=== PATIENT | male | born 1980 | race Caucasian/White ===

== ENCOUNTER 2024-08-20 09:29 | Outpatient (CLI) | payer OTHER, SELFPAY ==
--- NOTE | 2024-08-20 09:43 | MRI_ITS ---
STUDY: MRI ARTHROGRAM OF THE LEFT SHOULDER REASON FOR EXAM: Male, 44 years old. Left shoulder strain. TECHNIQUE: 10 cc of dilute Clariscan contrast was injected into the left glenohumeral joint. MRI was obtained in all 3 orthogonal planes. In addition, a fat-suppressed T1-weighted sequence was performed with the patient''s arm in the abduction external rotation (ABER) position. COMPARISON: Left shoulder radiographs during the arthrogram injection dated 08/20/2024. FINDINGS: Normal supraspinatus tendon. Normal infraspinatus tendon. Normal subscapularis tendon. Normal teres minor tendon. Normal supraspinatus muscle. Normal infraspinatus muscle. Normal subscapularis muscle. Normal teres minor muscle. Normal glenohumeral articulation. There is mild enthesopathic subcortical cyst formation of the greater tuberosity of the humeral head. Normal biceps labral complex. Normal intracapsular long biceps tendon. Normal rotator interval. There is a suspected tear of the posterior glenoid labrum (axial T1 series 3 images 11-12). There is mild acromioclavicular arthrosis. There is a Type II morphology (curved), with a neutral orientation. There is no subacromial-subdeltoid bursal fluid. Normal visualized coracohumeral and coracoacromial ligaments. Normal quadrilateral space. Normal axillary space. Normal deltoid muscle. Normal trapezius muscle. MRI/Upper Ext Jt W/Contrast IMPRESSION: Suspected tear of the posterior glenoid labrum. Mild acromioclavicular arthrosis. No full-thickness rotator cuff tear. Electronically Signed: Abisai Reeder MD at 13:04 EST ,
--- NOTE | 2024-08-20 10:00 | RAD_ITS ---
STUDY: X-RAY - LEFT SHOULDER REASON FOR EXAM: Male, 44 years old. Shoulder arthrogram afterfilms. TECHNIQUE: 3 views of the left shoulder following intra-articular glenohumeral arthrogram injection. COMPARISON: None. FINDINGS: Normal glenohumeral articulation. There is minimal acromioclavicular arthrosis. Normal acromion. Normal humeral head and visualized proximal humerus. The soft tissue structures are unremarkable. There is no demonstrated fracture. Normal visualized pulmonary apex. RAD/Shoulder min 2 Views IMPRESSION: Minimal acromioclavicular arthrosis. No demonstrated fracture. Electronically Signed: Abisai Reeder MD at 15:09 EST ,
[2024-08-20] MEDS: Lidocaine 2% (5ml sdv) 5 ML VIAL.MPF INFILT (10:12)
[2024-08-20] MEDS: Gadoterate Meglumine Diluted 10 ML, Iopamidol 5 ML, Lidocaine 1% (20 ml mdv) 5 ML, Epin... INTRAARTIC (10:13)
[2024-08-20] MEDS: Iopamidol 10 ML in Syringe 1 EACH 600 ML INTRAARTIC (10:13)
--- NOTE | 2024-08-20 11:11 | PCM.OPRPT ---
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 Fall INDICATION: Male, 44 years old. Left shoulder strain. PROVIDER: Shawna FISCHER FLUOROSCOPY TIME (if supplied): 0 minutes/27 seconds. 4.9 mGy CONSENT: The procedure as well as the benefits and possible complications including bleeding and infection were explained to the patient. Informed consent was obtained. TECHNIQUE: The patient was positioned supine. The overlying skin was prepped and draped in the usual sterile fashion. Following injection of local anesthetic with 2% lidocaine, a 22-gauge spinal needle was positioned under radiographic fluoroscopic localization. Approximately 2 cc of Isovue 300 instilled for localization purposes. Following this, 10 cc of arthrogram contrast (gadoterate, iopamidol, lidocaine, and epinephrine), compounded by pharmacy, was injected. All elements of maximal sterile barrier technique followed. Patient tolerated procedure well. IMPRESSION: Successful fluoroscopic guided left shoulder arthrogram. Surgical Findings: left shoulder arthrogram Complications Complications: No
== END 2024-08-20 23:59 | disposition home or self-care (01) ==
PROVIDERS: PCP Family Medicine; Referring Provider Student in an Organized Health Care Education/Training Program; Visit Provider Student in an Organized Health Care Education/Training Program
DX: S46.912A Strain of unspecified muscle, fascia and tendon at shoulder and upper arm level, left arm, initial encounter (principal); X58.XXXA Exposure to other specified factors, initial encounter; M75.02 Adhesive capsulitis of left shoulder; M75.22 Bicipital tendinitis, left shoulder
CPT/HCPCS: 23350; 73030; 73040; 73222; Q9967